=== PATIENT | female | born 1955 | race Native Hawaiian/Other Pacific Islander ===

== ENCOUNTER 2017-11-23 15:10 | Observation (INO) | payer OTHER ==
[~2017-11-23] VITALS: Ht 157.5 cm; Wt 72.1 kg
[2017-11-23 19:28] LABS: PLATELET COUNT 246 K/uL (152-353)
[2017-11-23 20:48] LABS: POTASSIUM 3.9 mmol/L (3.6-5.2); SODIUM 133 mmol/L (136-145)
[2017-11-23 22:15] LABS: PARTIAL THROMBOPLASTIN TIME 25.5 SECONDS (24.5-33.6)
[2017-11-23 22:59] VITALS: BP 136/61; TEMP 98.2; Ht 157.5 cm; Wt 72.1 kg
[2017-11-24] VITALS: BP 96/63; TEMP 98.7
--- NOTE | 2017-11-24 01:19 | NUR ---
11/24/17 0115 RESTING IN BED WITH EYES CLOSED NAD NOTED.IV FLUIDS INFUSING WITHOUT DIFFICULTY.CC
[2017-11-24 04:00] VITALS: BP 142/87; TEMP 97.8
[2017-11-24 08:00] VITALS: BP 125/78; TEMP 98
[2017-11-24 12:00] VITALS: BP 125/92; TEMP 98.3
[2017-11-24 16:29] VITALS: BP 121/73; TEMP 98.4
== END 2017-11-24 17:23 | disposition home or self-care (01) ==
LOC: MED/SURG 15:10
PROVIDERS: ADMIT Family Medicine
DX: R07.89 Other chest pain (principal); J09.X2 Influenza due to identified novel influenza A virus with other respiratory manifestations
CPT/HCPCS: 36591; 80053; 82550; 84484; 85027; 85610; 85730; 93005; 94640; 94664; 94760; 96365; 96366; 96372; 99220; G0378; G0379; J1650